=== PATIENT | male | born 1965 | race African-American/Black ===

== ENCOUNTER 2020-08-10 03:58 | Emergency (ER) | payer BC, SELFPAY ==
--- NOTE | ~2020-08-10 | CT_ITS ---
EXAMINATION: CT ABDOMEN AND PELVIS WITHOUT CONTRAST CLINICAL INFORMATION: Lower abdominal pain. History of diverticulitis. COMPARISON: None TECHNIQUE: Multidetector volumetric imaging was performed from the superior aspect of the liver through the pubic symphysis. Sagittal and coronal reformatted images were obtained on the technologist's workstation. This CT examination was performed using dose optimization techniques as appropriate, variously including the following: *Automated exposure control *Adjustment of mA and/or kV according to patient size (this includes techniques or standardized protocols for targeted exams where dose is matched to indication/reason for exam; i.e. extremities or head) *Use of iterative reconstruction technique DLP: 773 mGy-cm FINDINGS: LUNG BASES: The visualized lung bases are unremarkable. LIVER, GALLBLADDER, AND BILIARY TREE: The liver is normal in size and shape with decreased attenuation. No focal hepatic lesion or biliary ductal dilatation is present. The gallbladder is unremarkable with no evidence of radiopaque gallstones, gallbladder wall thickening, or obvious pericholecystic inflammatory changes. PANCREAS: Unremarkable. SPLEEN: Unremarkable. ADRENAL GLANDS: Unremarkable. KIDNEYS AND URETERS: The kidneys are normal in size, shape, and attenuation. There is mild left hydroureteronephrosis with perinephric and periureteral stranding. There is a 0.5 cm calculus in the bladder immediately adjacent to the ureterovesicular junction. No left renal calculi. There is a right upper pole 0.4 cm calculus which is 11 cm from the posterior axillary line. BLADDER: 0.5 cm bladder calculus adjacent to the left ureterovesicular junction. No bladder wall thickening. GASTROINTESTINAL TRACT: The stomach is unremarkable. Normal caliber small bowel. No obstruction. Normal appendix. Colonic diverticulosis noted without diverticulitis. No free air or free fluid. ABDOMINAL WALL: Small fat-containing supraumbilical hernia. LYMPH NODES: Normal. VASCULAR: Unremarkable. PELVIC VISCERA: The prostate and seminal vesicles are unremarkable. OSSEOUS STRUCTURES: No acute or suspicious osseous abnormality. Mild degenerative changes of the spine. CT/CT abdomen pelvis wo con IMPRESSION: Mild left hydroureteronephrosis with a 0.5 cm calculus in the bladder immediately adjacent to the ureterovesicular junction. Hepatic steatosis.
[2020-08-10 04:01] VITALS: BP 142/100; PULSE 91; RESP 142; RESP 20; TEMP 36.9; O2SAT 98; BMI 32.5
--- NOTE | 2020-08-10 04:06 | ED_ITS ---
HPI - Abdominal Pain General Chief Complaint: Abdominal Pain Stated Complaint: Abd pain Time Seen by Provider: 08/10/20 04:02 Source: patient, family and EMS Mode of arrival: EMS Limitations: no limitations History of Present Illness HPI narrative: 55-year-old male came in for evaluation of abdominal pain. Pain started about 4 hours ago started 1st in the left lower quadrant area, radiating to the supra pubic area and right lower quadrant area, pain is constant but waning and waxing, patient described as sharp crampy pain when it is severe it is 10/10, no other associated symptoms no nausea, no vomiting, no fever, nothing makes the pain worse or better. Patient had similar episode of abdominal pain in the past and he was diagnosed with acute diverticulitis. Related Data Allergies Allergy/AdvReac Type Severity Reaction Status Date / Time No Known Allergies Allergy Verified 08/10/20 05:22 Review of Systems Review of Systems All other systems are reviewed and are negative Constitutional: Reports as per HPI and Reports no additional constitutional complaints Eyes: Reports as per HPI and Reports no additional eye complaints Reports system reviewed and no additional complaints, except as documented Cardiovascular: Reports as per HPI and Reports no additional cardiovascular complaints Respiratory: Reports as per HPI and Reports no additional respiratory complaints Gastrointestinal: Reports as per HPI and Reports no additional gastrointestinal complaints Genitourinary: Reports no additional female genitourinary complaints Musculoskeletal: Reports no additional musculoskeletal complaints Skin/Breast: Reports system reviewed and no additional complaints, except as docu Psychiatric: Reports no additional psychiatric complaints Endocrine: Reports no additional endocrine complaints Hematologic/Lymphatic: Reports no additional hematologic/lymphatic complaints Allergic/Immunologic: Reports no additional allergic/immunologic complaints Reports system reviewed and no additional complaints, except as documented and Reports Abnormal speech present Physical Exam Vital Signs: Vital Signs: Last Vital Signs Temp 98.4 F 08/10/20 04:01 Pulse 88 08/10/20 05:30 Resp 16 08/10/20 05:30 BP 143/100 H 08/10/20 05:30 Pulse Ox 98 08/10/20 05:30 Body Mass Index 32.5 Vital signs have been reviewed as appeared to be correct. Blood pressure normal. Heart rate normal. Respiration rate normal. Temperature normal. Oxygen saturation normal. Appearance: Alert. Oriented X3. No acute distress. Head: Normal external exam. Normocephalic. Atraumatic. No Bullard signs noted. No raccoon eyes noted Eyes: PERRLA. EOMI. Conjunctiva and sclera normal. Eyelids normal. ENT: TM's Normal. Pharynx normal. Uvula midline. Moist mucous membranes. No trismus noted. No drooling noted. No muffled voice noted. Neck: Normal inspection. Neck supple. FROM. No adenopathy. Thyroid Normal. No meningeal signs. No neck mass noted. CVS: Normal heart rate and rhythm. Heart sound normal. No murmurs noted. Pulses normal throughout. Respiratory: No respiratory distress. Painless inspiration. Breath sounds normal. No wheezes/rales/rhonchi noted. Chest nontender. No accessory muscle usage noted or decreased air movement noted. Abdomen: Soft, mild tenderness left lower quadrant/suprapubic, no guarding, no rebound. Bowel sounds normal in all 4 quadrants. No distention noted. No organomegaly noted. No visible injury noted. Back: Left CVA tenderness. Full range of motion noted. Skin: Skin warm and dry. Normal skin color. Normal skin turgor. No rashes/lesions/lacerations noted. Extremities: No lower extremity edema. Extremities exhibit normal range of motion. Extremities nontender. Neuro: Oriented X 3. No motor deficit. No sensory deficit. Reflexes normal. Course Course Course Narrative: 55-year-old male came in with abdominal pain. CT showing recent passing stone. Patient is more comfortable. No abdominal pain. Patient was instructed to drink plenty of fluids. MDM - Abdominal Pain Lab Data Attestation: I reviewed the patient's lab results. Result diagrams: 08/10/20 04:16 08/10/20 04:16 Labs: Lab Results 08/10/20 08/10/20 Range/Units 04:16 04:16 WBC 12.3 H (4.8-10.8) X10*3/uL RBC 5.34 (4.60-5.80) X10*6/uL Hgb 14.1 (14.0-18.0) g/dl Hct 43.1 (42-52) % MCV 80.7 (80-98) fL MCH 26.4 L (27.0-33.0) pg MCHC 32.7 (31.0-36.0) g/dl RDW 14.3 (11.0-16.0) % Plt Count 203 (160-400) X10*3/uL MPV 10.7 (9.4-12.4) fL Immature Gran % (Auto) 0.2 (0.0-0.4) % Neut % (Auto) 67.8 (45-73) % Lymph % (Auto) 23.2 (20-40) % [place] % (Auto) 7.6 (2-11) % Eos % (Auto) 0.8 (0-4) % Baso % (Auto) 0.4 (0-2) % Lymph # (Auto) 2.9 (1.2-4.9) X10*3/uL [place] # (Auto) 0.9 (0.1-1.2) X10*3/uL Eos # (Auto) 0.1 (0.0-0.4) X10*3/uL Baso # (Auto) 0.1 (0.0-0.2) X10*3/uL Abs Immat Gran (auto) 0.03 (0.00-0.03) X10*3/uL Absolute Neuts (auto) 8.3 (2.0-8.3) X10*3/uL Absolute Nucleated RBC 0.000 (0.0-0.012) X10*3/uL Nucleated RBC % (auto) 0.0 (0.0-0.2) /100WBC Sodium 141 (135-145) mmol/L Potassium 3.8 (3.3-5.1) mmol/L Chloride 105 (96-108) mmol/L Carbon Dioxide 27 (22-29) mmol/L Anion Gap 13 (12-20) BUN 18 H (9-16) mg/dL Creatinine 1.27 (0.5-1.4) mg/dL Estim Creat Clear Calc 90.7 Estimated GFR 59 Random Glucose 159 H (60-115) mg/dL Calcium 9.8 (8.4-10.2) mg/dL Total Bilirubin 0.4 (0.0-1.0) mg/dL Direct Bilirubin 0.2 (0.0-0.5) mg/dL AST 20 (5-37) U/L ALT 30 (0-40) U/L Alkaline Phosphatase 80 (39-117) U/L Total Protein 6.9 (6.5-8.0) g/dL Albumin 4.3 (3.5-5.0) g/dL Lipase 65 (8-78) U/L Imaging Data CT scan - abdomen: Radiologist's impression: Mild left hydroureteronephrosis with a 0.5 cm calculus in the bladder immediately adjacent to the ureterovesicular junction. Hepatic steatosis. Discharge Plan Discharge Clinical Impression: Calculus of kidney Patient Disposition: Home, Self-Care Instructions: Kidney Stones (ED) Additional Instructions: Drink plenty of fluid. Referrals: Physician,Unknown [Primary Care Provider] - 2 days [facility] Social History Social History Advance Directives: No Advance Directives Information Provided: No
--- NOTE | 2020-08-10 04:19 | PC.NURSE ---
Off to CT on hospital bed. Plan to medicate upon return.
[2020-08-10 04:20] LABS: Basophils Absolute Auto 0.1 X10*3/uL (0.0-0.2); Basophils Percent Auto 0.4 % (0-2); Eosinophils Absolute Auto 0.1 X10*3/uL (0.0-0.4); Eosinophils Percent Auto 0.8 % (0-4); Hematocrit 43.1 % (42-52); Hemoglobin 14.1 g/dl (14.0-18.0); Imm Gran Abs Auto 0.03 X10*3/uL (0.00-0.03); Imm Gran Pct Auto 0.2 % (0.0-0.4); Lymphocytes Absolute Auto 2.9 X10*3/uL (1.2-4.9); Lymphocytes Percent Auto 23.2 % (20-40); MANUAL DIFF FLAG NO; Mean Corpuscular HGB Conc 32.7 g/dl (31.0-36.0); Mean Corpuscular Hemoglobin 26.4 pg (27.0-33.0); Mean Corpuscular Volume 80.7 fL (80-98); Mean Platelet Volume 10.7 fL (9.4-12.4); Monocytes Absolute Auto 0.9 X10*3/uL (0.1-1.2); Monocytes Percent Auto 7.6 % (2-11); Neutrophils Absolute Auto 8.3 X10*3/uL (2.0-8.3); Neutrophils Percent Auto 67.8 % (45-73); Platelet Count 203 X10*3/uL (160-400); Red Blood Count 5.34 X10*6/uL (4.60-5.80); Red Cell Distribution Width 14.3 % (11.0-16.0); White Blood Count 12.3 X10*3/uL (4.8-10.8)
[2020-08-10] MEDS: Ketorolac Tromethamine 15 MG/ML VIAL IV (04:26)
[2020-08-10] MEDS: Morphine Sulfate 2 MG/ML CARTRIDGE IVPUSH (04:26)
[2020-08-10] MEDS: 0.9 % Sodium Chloride 1,000 ML 999 ML IVCONT (04:27)
--- NOTE | 2020-08-10 04:32 | PC.NURSE ---
IV established, labs obtained. Pt medicated per MAR, IVF infusing. Pt aware of plan to await results of CT. Call aguero within reach, continue to monitor.
[2020-08-10 04:42] LABS: Alanine Aminotransferase 30 U/L (0-40); Albumin Level 4.3 g/dL (3.5-5.0); Alkaline Phosphatase 80 U/L (39-117); Anion Gap 13 (12-20); Aspartate Amino Transferase 20 U/L (5-37); Bilirubin Direct 0.2 mg/dL (0.0-0.5); Bilirubin Total 0.4 mg/dL (0.0-1.0); Blood Urea Nitrogen 18 mg/dL (9-16); Calcium 9.8 mg/dL (8.4-10.2); Carbon Dioxide 27 mmol/L (22-29); Chloride 105 mmol/L (96-108); Creatinine Clr Calc Pharmacy 90.7; Estimated Glomerular Filt Rate 59; Glucose Random 159 mg/dL (60-115); Lipase 65 U/L (8-78); Potassium 3.8 mmol/L (3.3-5.1); Sodium 141 mmol/L (135-145); Total Protein 6.9 g/dL (6.5-8.0)
--- NOTE | 2020-08-10 04:55 | PC.NURSE ---
Pt resting in bed, reporting decreased pain, states his pain has decreased to a 4/10. Per mother at bed, multiple recent stressors at home including the of his father and brother.
[2020-08-10 05:30] VITALS: BP 143/100; PULSE 88; RESP 16; O2SAT 98
--- NOTE | 2020-08-10 05:30 | PC.NURSE ---
MD at bedside explaining results and plan for discharge. IV removed, VSS. Pt awaiting discharge paperwork.
== END 2020-08-10 06:05 | disposition home or self-care (01) ==
PROVIDERS: Emergency Provider Emergency Medicine
DX: N13.2 Hydronephrosis with renal and ureteral calculous obstruction (principal); K57.30 Diverticulosis of large intestine without perforation or abscess without bleeding; K80.80 Other cholelithiasis without obstruction
CPT/HCPCS: 36415; 74176; 80048; 80076; 83690; 85025; 96361; 96374; 96375; 99284; J1885; J2270